=== PATIENT | female | born 2000 | race Caucasian/White ===

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

== ENCOUNTER 2020-02-24 09:27 | Emergency (ER) | payer MEDICAID, SELFPAY ==
[2020-02-24 09:46] VITALS: BP 134/89; PULSE 115; RESP 18; TEMP 37.1; O2SAT 97; BMI 30.7
--- NOTE | 2020-02-24 09:52 | USR_ITS ---
PROCEDURE INFORMATION: Exam: US Pelvis Complete, Transabdominal and US Pelvis, Transvaginal Exam date and time: 02/24/2020 10:29 AM Age: 19 years old Clinical indication: Other: Vaginal bleeding; Additional info: Vag bleed TECHNIQUE: Imaging protocol: Real-time transabdominal and transvaginal pelvic ultrasound (complete) with image documentation. Transvaginal imaging was used for better evaluation of the endometrium and adnexa. [place] [facility] [place] 08/26/2017 4:23 PM FINDINGS: Uterus/cervix: There is complex fluid at the cervix consistent with blood and the history of vaginal bleeding. The endometrium within the uterus is 7 mm in thickness. The uterus is otherwise normal in size shape and echogenicity. Right adnexa: Normal. No mass. Normal ovarian blood flow. Left adnexa: The left ovary could not be identified. Intraperitoneal space: None. Urinary bladder: Normal. US/US pelvic with transvaginal IMPRESSION: There is complex fluid in the cervix the probably represents blood. No other significant abnormality.
--- NOTE | 2020-02-24 09:56 | ED_ITS ---
HPI - Female Genitourinary General: Chief complaint: Vaginal Bleeding Stated complaint: VAG BLEEDING Time Seen by Provider: 02/24/20 09:47 History of Present Illness: HPI Narrative: Patient seen week and half ago by JOURNAL ENTRY AUDIT CLERK told she had a miscarriage was given a one-time dose of misoprostol. Bleeding slowed down and started to have a little bit of bleeding on seventh when she is seen by JOURNAL ENTRY AUDIT CLERK again and then started bleeding on eighth and ninth and 11th because she said she is going through a pad an hour. Denies any cramping feels weak denies any other problems. Patient states that she is a definite O+ blood type MD elicited complaint: vaginal bleeding and possible miscarriage Pertinent past history: prior miscarriages Onset (ago): day(s) Consistency: constant Vaginal discharge: none Vaginal bleeding: heavy, bright red and # pads per hour (1) Exacerbating factors: none Relieving factors: none Associated symptoms: Reports other (Weakness); Deny abdominal pain, headache(s) or nausea Treatment prior to arrival: none Sexual activity: No Patient : No (Was told that she had miscarried) Date of Last Menstrual Period: 02/24/20 Review of Systems Const: Denies: fever(s), chills or body aches Eyes: Denies: change in vision or blurry vision ENMT: Denies: throat pain or nasal congestion Card: Denies: chest pain or dyspnea on exertion Resp: Denies: dyspnea, productive cough or non-productive cough GI: Denies: abdominal pain, nausea or vomiting : Reports: vaginal bleeding Musc: Denies: extremity pain Skin/Breast: Denies: rash Neuro: Denies: headache(s) Psych: Denies: anxiety or depression Carl/Lymph: Denies: easy bruising [facility] ED Female Reproductive History: Date of last menstrual period: 02/24/20 Physical Exam Const: COMMON NORMALS: no acute distress, average body habitus and patient oriented x3 HENMT: COMMON NORMALS: normocephalic HEAD & SCALP: normal to inspection and normocephalic FACE & SINUS: normal facial exam Eye: COMMON NORMALS: conjunctivae normal GENERAL EYE: appearance normal, both eyes and all related structures CONJUNCTIVA: Yes conjunctivae normal Neck/C-Spine: COMMON NORMALS: no JVD Chest: COMMONS NORMALS: normal inspection of the chest Resp: COMMON NORMALS: normal respiratory effort Cardio: COMMON NORMALS: no JVD and regular rhythm RATE: tachycardic RHYTHM: regular rhythm GI: COMMON NORMALS: Normal to inspection, nondistended, normoactive bowel sounds present Extremity: COMMON NORMALS: normal to inspection and full ROM Neuro: COMMON NORMALS: patient oriented x3 Course Vital Signs: Vital signs: Vital Signs Temperature 98.7 F 02/24/20 09:46 Pulse Rate 103 H 02/24/20 11:13 Respiratory Rate 18 02/24/20 11:13 Blood Pressure 121/73 02/24/20 11:13 Pulse Oximetry 100 02/24/20 11:13 MDM - Female MDM Narrative: Medical decision making narrative: Discussed case with Dr. Islas discussed radiology results agreed on plan to treat patient patient follow-up with JOURNAL ENTRY AUDIT CLERK and [place] Lab Data: Labs: Lab Results 02/24/20 02/24/20 02/24/20 Range/Units 10:00 10:00 10:00 WBC 7.9 (4.5-13.0) 10^3/ uL RBC 3.98 L (4.1-5.3) 10^6/u L Hgb 11.8 (11.5-15.3) g/dL Hct 36.3 L (37.0-47.0) % MCV 91.2 (81-99) fL MCH 29.6 (28.0-34.0) pg MCHC 32.5 (30.0-36.0) g/dL RDW 13.0 (12.1-15.1) % Plt Count 215 (130-400) 10^3/c mm MPV 11.1 H (7.4-10.4) fL Neut % (Auto) 74.9 % Lymph % (Auto) 15.4 % [place] % (Auto) 8.6 % Eos % (Auto) 0.4 % Baso % (Auto) 0.3 % Neut # (Auto) 5.92 (1.8-8.0) 10^3/u L Lymph # (Auto) 1.2 L (1.5-6.5) 10^3/u L [place] # (Auto) 0.7 (0.2-0.9) 10^3/u L Eos # (Auto) 0.0 (0.0-0.8) 10^3/u L Baso # (Auto) 0.0 (0.0-0.1) 10^3/u L Nucleated RBC % (a uto) 0 % Nucleated RBCs # 0.0 /100WBC PT 13.30 (12.1-14.9) SECO NDS INR 0.99 (0.8-1.2) Sodium 137 (136-145) mmol/L Potassium 3.2 L (3.5-5.1) mmol/L Chloride 103 (98-107) mmol/L Carbon Dioxide 22 (22-29) mmol/L Anion Gap 15.2 (5-19) BUN 8 (6-20) mg/dL Creatinine 0.7 (0.5-0.9) mg/dL GFR Calculation 107.8 (90-130) mL/min Glucose 96 (65-115) mg/dL Calculated Osmolal ity 282 L (285-295) mOsm/k g Calcium 9.3 (8.5-10.5) mg/dL Total Bilirubin 0.3 (0.15-1.2) mg/dL AST 15 (0-32) U/L ALT 14 (0-33) U/L Alkaline Phosphata se 88 (35-105) IU/L Total Protein 7.2 (6.6-8.7) g/dL Albumin 3.9 (3.5-5.2) g/dL Globulin 3.3 (1.3-4.6) g/dL Ser , Jameel i-Qnt 897.20 mIU/mL Coding Level of Care Code ED Seal Mixer for Chg Fwd Exam Comprehensive
[2020-02-24 09:57] VITALS: BP 144/88; PULSE 115; RESP 18; O2SAT 100
[2020-02-24 10:23] LABS: Basophils % 0.3 %; Eosinophils % 0.4 %; Hematocrit 36.3 % (37.0-47.0); Hemoglobin 11.8 g/dL (11.5-15.3); Lymphocytes # 1.2 10^3/uL (1.5-6.5); Lymphocytes % 15.4 %; Mean Corpuscular HGB Conc 32.5 g/dL (30.0-36.0); Mean Corpuscular Hemoglobin 29.6 pg (28.0-34.0); Mean Corpuscular Volume 91.2 fL (81-99); Mean Platelet Volume 11.1 fL (7.4-10.4); Monocytes # 0.7 10^3/uL (0.2-0.9); Monocytes % 8.6 %; Neutrophils # 5.92 10^3/uL (1.8-8.0); Neutrophils % 74.9 %; Nucleated Red Blood Cells % 0 %; Platelet Count 215 10^3/cmm (130-400); Red Blood Count 3.98 10^6/uL (4.1-5.3); White Blood Count 7.9 10^3/uL (4.5-13.0)
[2020-02-24 10:35] LABS: INR 0.99 (0.8-1.2)
[2020-02-24 10:51] LABS: Alanine Aminotransferase 14 U/L (0-33); Albumin Level 3.9 g/dL (3.5-5.2); Alkaline Phosphatase 88 IU/L (35-105); Anion Gap 15.2 (5-19); Aspartate Amino Transferase 15 U/L (0-32); Blood Urea Nitrogen 8 mg/dL (6-20); Calcium 9.3 mg/dL (8.5-10.5); Carbon Dioxide 22 mmol/L (22-29); Chloride 103 mmol/L (98-107); Creatinine Clr Calc Pharmacy 138.2884; Globulin 3.3 g/dL (1.3-4.6); Glomerular Filtration Rate 107.8 mL/min (90-130); Glucose 96 mg/dL (65-115); Osmolality Calculated 282 mOsm/kg (285-295); Potassium 3.2 mmol/L (3.5-5.1); Sodium 137 mmol/L (136-145); Total Bilirubin 0.3 mg/dL (0.15-1.2); Total Protein 7.2 g/dL (6.6-8.7)
[2020-02-24 11:13] VITALS: BP 121/73; PULSE 103; RESP 18; O2SAT 100
[2020-02-24] MEDS: potassium chloride ER 10 mEq Tablet 40 MEQ PO (11:28)
[2020-02-24 11:36] LABS: Bilirubin Urine 1+ (Negative); Blood Urine 3+ (Negative); Glucose Urine UA Norm (Normal); Ketones Urine 2+ (Negative); Nitrate Urine Negative (Negative); Protein Urine 1+ (Negative); Specific Gravity, Urine 1.025 (1.005-1.030); Urine Appearance Hazy (CLEAR); Urine Color Amber (Yellow); Urobilinogen Urine 1 mg/dL (Negative); pH Urine 5 (5-7)
[2020-02-24 11:37] LABS: Add Urine Microscopic? YES; Leukocyte Esterase Urine Trace (Negative)
[2020-02-24 11:39] LABS: RBC Urine TOO NUMEROUS TO CNT /hpf (0-2)
[2020-02-24 11:40] VITALS: BP 116/85; PULSE 101; RESP 18; O2SAT 96
[2020-02-24 11:40] LABS: Bacteria Urine 2+ /hpf; Mucus Urine 2+ /hpf
[2020-02-24 11:42] LABS: Add Urine Culture? Yes
== END 2020-02-24 11:41 | disposition home or self-care (01) ==
PROVIDERS: Emergency Provider Nurse Practitioner Family; Family Provider Family Medicine; PCP Family Medicine
DX: N93.9 Abnormal uterine and vaginal bleeding, unspecified (principal)
CPT/HCPCS: 12345; 76830; 76856; 80053; 81001; 84702; 85025; 85610; 87086; 99283

== ENCOUNTER 2020-08-02 08:34 | Emergency (ER) | payer MEDICAID, SELFPAY ==
[2020-08-02] VITALS (7 sets, daily range): BP systolic 122–133; BP diastolic 71–84; PULSE 78–83; RESP 15–18; TEMP 36.3; O2SAT 98–99; BMI 29.9
--- NOTE | 2020-08-02 09:02 | ED_ITS ---
HPI - Female Genitourinary General: Chief complaint: Vaginal Bleeding Stated complaint: 6 weeks preg/ Vaginal Bleeding Time Seen by Provider: 08/02/20 08:43 Source: patient Mode of arrival: ambulatory Limitations: no limitations History of Present Illness: HPI Narrative: 19-year-old female, G4,P1 at approximately 6 weeks gestation by LMP started having lower abdominal cramping and vaginal bleeding this morning. Has passed a few small clots, bleeding is light. She has had 2 previous first trimester miscarriages. She has not yet had an ultrasound during this . No fever, no nausea or vomiting, no abnormal vaginal discharge prior. No dysuria. Associated symptoms: Deny abdominal pain, headache(s), nausea or vaginal discharge Date of Last Menstrual Period: 02/24/20 Review of Systems General: Reports: 10 or more systems reviewed and unremarkable except in HPI and below Const: Denies: fever(s), chills, body aches, change in appetite or change in weight Eyes: Denies: change in vision, blurry vision or blind spots ENMT: Denies: throat pain Card: Denies: chest pain, palpitations or irregular heart rhythm Resp: Denies: dyspnea, productive cough or non-productive cough GI: Reports: GI cramping; Denies: abdominal pain, nausea, vomiting or diarrhea : Reports: vaginal bleeding; Denies: flank pain, difficulty voiding, dysuria, urinary frequency, vaginal odor or vaginal discharge Musc: Denies: neck pain, back pain or extremity pain Skin/Breast: Denies: rash or pruritus Neuro: Denies: headache(s), numbness in extremities or weakness in extremities Endo: Denies: polyuria, polydipsia or tired all the time Carl/Lymph: Denies: easy bruising, easy bleeding or petechiae [facility] Female Reproductive History: Date of last menstrual period: 02/24/20 Physical Exam Const: COMMON NORMALS: no acute distress, average body habitus, patient oriented x3, healthy appearing and alert GENERAL APPEARANCE: cooperative, comfortable and anxious; not in distress, not ill appearing and not frail appearing HENMT: COMMON NORMALS: normocephalic and atraumatic HEAD & SCALP: normocephalic and atraumatic FACE & SINUS: normal facial exam Eye: COMMON NORMALS: Equal, round and reactive pupils present, EOMs intact bilaterally, conjunctivae normal and no scleral icterus GENERAL EYE: appearance normal, both eyes and all related structures CONJUNCTIVA: Yes conjunctivae normal PUPIL: Yes Equal, round and reactive pupils present Neck/C-Spine: COMMON NORMALS: full ROM Lymph: LYMPHATIC: no lymphadenopathy noted Resp: COMMON NORMALS: normal respiratory effort, No use of accessory muscles and clear to auscultation bilaterally EFFORT & INSPECTION: Yes able to speak in complete sentences, No tachypneic, No respiratory distress and No Actively coughing AUSCULTATION: clear to auscultation bilaterally Cardio: COMMON NORMALS: regular rate, regular rhythm, S1 normal heart sound present and S2 normal heart sound present RATE: regular rate RHYTHM: regular rhythm HEART SOUNDS: S1 normal heart sound present and S2 normal heart sound present GI: COMMON NORMALS: Normal to inspection, nondistended, normoactive bowel sounds present, Soft to palpation and non-tender PALPATION: Yes Soft to palpation : COMMON NORMALS: Yes normal external appearance SPECULUM EXAM - VAGINA: No foreign body, Yes vaginal bleeding Amount: scant and with clots, No mass, No Vaginal polyp present and No Vaginal discharge present SPECULUM EXAM - CERVIX: Yes Cervical os closed, No Cervical lesion present, No Cervical mass present and No Cervical laceration present BIMANUAL EXAM - ADNEXA, OTHER: Yes normal adnexae OB/EXTERNAL & SPECULUM: no foreign bodies Neuro: COMMON NORMALS: patient oriented x3 SENSORIUM/ORIENTATION: Yes alert Skin: COMMON NORMALS: no rashes or lesions noted, no wounds and turgor normal GENERAL SKIN EXAM: no rashes or lesions noted and turgor normal Course Vital Signs: Vital signs: Vital Signs Temperature 97.3 F L 08/02/20 08:38 Pulse Rate 78 08/02/20 10:05 Respiratory Rate 18 08/02/20 12:01 Blood Pressure 124/72 08/02/20 10:05 Pulse Oximetry 99 08/02/20 11:00 MDM - Female MDM Narrative: Medical decision making narrative: 19-year-old female with vaginal bleeding, proximately 6 weeks . Scant blood in the vaginal vault on exam. Vital signs and routine labs all unremarkable. UA does not suggest acute infection. [place] [id number], Rh + Ultrasound shows single viable IUP at approximately 6 weeks. No mention of subchorionic hemorrhage or other abnormalities. heart rate was 100, which is lower than would be expected. Discussed these findings with the patient. Watchful waiting over the next 24 to 48 hours, and prompt follow-up with her SUPERVISOR MOLDING. Bleeding precautions discussed. Pelvic rest. Medical Records: Attestation: I reviewed the patient's medical records. Lab Data: Attestation: I reviewed the patient's lab results. Labs: Lab Results 08/02/20 08/02/20 08/02/20 Range/Units 08:45 08:45 08:45 WBC 10.4 (4.5-13.0) 10^3/ uL RBC 4.73 (4.1-5.3) 10^6/u L Hgb 12.5 (11.5-15.3) g/dL Hct 40.1 (37.0-47.0) % MCV 84.8 (81-99) fL MCH 26.4 L (28.0-34.0) pg MCHC 31.2 (30.0-36.0) g/dL RDW 16.9 H (12.1-15.1) % Plt Count 287 (130-400) 10^3/c mm MPV 11.1 H (7.4-10.4) fL Neut % (Auto) 69.5 % Lymph % (Auto) 21.9 % [place] % (Auto) 6.9 % Eos % (Auto) 1.1 % Baso % (Auto) 0.4 % Neut # (Auto) 7.25 (1.8-8.0) 10^3/u L Lymph # (Auto) 2.3 (1.5-6.5) 10^3/u L [place] # (Auto) 0.7 (0.2-0.9) 10^3/u L Eos # (Auto) 0.1 (0.0-0.8) 10^3/u L Baso # (Auto) 0.0 (0.0-0.1) 10^3/u L Nucleated RBC % (a uto) 0 % Nucleated RBCs # 0.0 /100WBC Sodium 134 L (136-145) mmol/L Potassium 3.6 (3.5-5.1) mmol/L Chloride 101 (98-107) mmol/L Carbon Dioxide 23 (22-29) mmol/L Anion Gap 13.6 (5-19) BUN 8 (6-20) mg/dL Creatinine 0.5 (0.5-0.9) mg/dL GFR Calculation 158.9 H (90-130) mL/min Glucose 87 (65-115) mg/dL Calculated Osmolal ity 276 L (285-295) mOsm/k g Calcium 8.9 (8.5-10.5) mg/dL Ser , Jameel [place]-Qnt 42327.00 mIU/mL Urine Color (Yellow) Urine Appearance (CLEAR) Urine pH (5-7) Ur Specific Gravit y (1.005-1.030) Urine Protein (Negative) Urine Glucose (UA) (Normal) Urine Ketones (Negative) Urine Blood (Negative) Urine Nitrate (Negative) Urine Bilirubin (Negative) Urine Urobilinogen (Negative) mg/dL Ur Leukocyte Ashley ase (Negative) Urine RBC (0-2) /hpf Urine WBC (0-5) /hpf Ur Squamous Epith Cells (0-5) /hpf Amorphous Sediment Urine Bacteria (NONE) /hpf Blood Type O Positive Rho(D) Type Positive / 4+ 03/ Range/Units 08:45 WBC (4.5-13.0) 10^3/ uL RBC (4.1-5.3) 10^6/u L Hgb (11.5-15.3) g/dL Hct (37.0-47.0) % MCV (81-99) fL MCH (28.0-34.0) pg MCHC (30.0-36.0) g/dL RDW (12.1-15.1) % Plt Count (130-400) 10^3/c mm MPV (7.4-10.4) fL Neut % (Auto) % Lymph % (Auto) % [place] % (Auto) % Eos % (Auto) % Baso % (Auto) % Neut # (Auto) (1.8-8.0) 10^3/u L Lymph # (Auto) (1.5-6.5) 10^3/u L [place] # (Auto) (0.2-0.9) 10^3/u L Eos # (Auto) (0.0-0.8) 10^3/u L Baso # (Auto) (0.0-0.1) 10^3/u L Nucleated RBC % (a uto) % Nucleated RBCs # /100WBC Sodium (136-145) mmol/L Potassium (3.5-5.1) mmol/L Chloride (98-107) mmol/L Carbon Dioxide (22-29) mmol/L Anion Gap (5-19) BUN (6-20) mg/dL Creatinine (0.5-0.9) mg/dL GFR Calculation (90-130) mL/min Glucose (65-115) mg/dL Calculated Osmolal ity (285-295) mOsm/k g Calcium (8.5-10.5) mg/dL Ser , Jameel i-Qnt mIU/mL Urine Color Yellow (Yellow) Urine Appearance Sl hazy (CLEAR) Urine pH 6 (5-7) Ur Specific Gravit y 1.015 (1.005-1.030) Urine Protein Neg (Negative) Urine Glucose (UA) Norm (Normal) Urine Ketones Negative (Negative) Urine Blood 3+ H (Negative) Urine Nitrate Negative (Negative) Urine Bilirubin Neg (Negative) Urine Urobilinogen Norm (Negative) mg/dL Ur Leukocyte Ashley ase Negative (Negative) Urine RBC 50-80 H (0-2) /hpf Urine WBC 0-4 H (0-5) /hpf Ur Squamous Epith Cells 5-10 H (0-5) /hpf Amorphous Sediment Not Reportable Urine Bacteria Trace (NONE) /hpf Blood Type Rho(D) Type Discharge Plan Discharge Patient Disposition: Home Clinical Impression: Threatened , Vaginal bleeding Condition: Stable Prescriptions: No Action 1 tab PO DAILY RF: 0 Discharge Orders: Discharge ED (Routine); Ordered 08/02/20 Ordered By: Dionne Gilbert Referrals: Jamie Sarabia MD [Primary Care Provider] - Discharge Diet: Advance as tolerated Patient Instructions: Threatened Miscarriage (ED) Activity Restrictions/Additional Instructions: Call to schedule follow-up appointment with your SUPERVISOR MOLDING in the next 3 to 5 days. Rest, drink plenty of fluids, avoid intercourse until you see your SUPERVISOR MOLDING. Return immediately to the ER if develop fever, severe abdominal pain or heavy vaginal bleeding. Coding Level of Care Code ED Compliance Review Officer for Ace Richey Exam Problem Focused
[2020-08-02 09:30] LABS: Basophils % 0.4 %; Eosinophils # 0.1 10^3/uL (0.0-0.8); Eosinophils % 1.1 %; Hematocrit 40.1 % (37.0-47.0); Hemoglobin 12.5 g/dL (11.5-15.3); Lymphocytes # 2.3 10^3/uL (1.5-6.5); Lymphocytes % 21.9 %; Mean Corpuscular HGB Conc 31.2 g/dL (30.0-36.0); Mean Corpuscular Hemoglobin 26.4 pg (28.0-34.0); Mean Corpuscular Volume 84.8 fL (81-99); Mean Platelet Volume 11.1 fL (7.4-10.4); Monocytes # 0.7 10^3/uL (0.2-0.9); Monocytes % 6.9 %; Neutrophils # 7.25 10^3/uL (1.8-8.0); Neutrophils % 69.5 %; Nucleated Red Blood Cells % 0 %; Platelet Count 287 10^3/cmm (130-400); Red Blood Count 4.73 10^6/uL (4.1-5.3); Red Cell Distribution Width 16.9 % (12.1-15.1); White Blood Count 10.4 10^3/uL (4.5-13.0)
[2020-08-02 10:00] LABS: Add Urine Microscopic? YES; Bilirubin Urine Neg (Negative); Blood Urine 3+ (Negative); Glucose Urine UA Norm (Normal); Ketones Urine Negative (Negative); Leukocyte Esterase Urine Negative (Negative); Nitrate Urine Negative (Negative); Protein Urine Neg (Negative); Specific Gravity, Urine 1.015 (1.005-1.030); Urine Appearance SL Hazy (CLEAR); Urine Color Yellow (Yellow); Urobilinogen Urine Norm (Negative); pH Urine 6 (5-7)
[2020-08-02 10:01] LABS: Bacteria Urine TRACE /hpf; RBC Urine 50-80 /hpf (0-2); WBC Urine 0-4 /hpf (0-5)
[2020-08-02 10:02] LABS: Add Urine Culture? Yes
[2020-08-02 10:04] LABS: Anion Gap 13.6 (5-19); Blood Urea Nitrogen 8 mg/dL (6-20); Calcium 8.9 mg/dL (8.5-10.5); Carbon Dioxide 23 mmol/L (22-29); Chloride 101 mmol/L (98-107); Glomerular Filtration Rate 158.9 mL/min (90-130); Glucose 87 mg/dL (65-115); Osmolality Calculated 276 mOsm/kg (285-295); Potassium 3.6 mmol/L (3.5-5.1); Sodium 134 mmol/L (136-145)
--- NOTE | 2020-08-02 10:25 | USR_ITS ---
PROCEDURE INFORMATION: Exam: US First Trimester, Transabdominal and US , Transvaginal Exam date and time: 08/02/2020 10:33 AM Age: 19 years old Clinical indication: Lmp or gestational age (in weeks): (not clear); Other: Vaginal bleeding, pain; ; Patient HX: H/o d&c ; Additional info: Vag bleeding, pain TECHNIQUE: Imaging protocol: Real-time transabdominal obstetrical ultrasound of the maternal pelvis and a first trimester , less than 14 weeks 0 days, with image documentation. Transvaginal imaging was used for better evaluation of the fetus, adnexa, and/or cervix. COMPARISON: No relevant available FINDINGS: Gestation: Gestational sac located at the fundus with mean sac diameter 9.6 mm (6 weeks 0 days). Ester-rump length 3.9 mm (6 weeks 0 day). Yolk sac measures 3 mm. No evidence of hemorrhage at the implantation site. Embryonic/ heart rate: heart rate 100 bpm. Placenta: Not visualized at this early stage. Amniotic fluid: Amniotic fluid is normal for gestational age. BIOMETRY: Gestational age (AUA): 6 weeks 0 days (+/-3 days) MATERNAL: Uterus: Uterus measures 6.8 x 3.6 x 6.8 cm. Cervix: Unremarkable. Right adnexa: Right ovary measures 3.4 x 3.3 x 3.1 cm and contains a 3.2 x 2.5 x 2.5 cm hypoechoic cyst. Normal blood flow identified within the ovary. Left adnexa: Left ovary not identified. No adnexal mass. Intraperitoneal space: No intraperitoneal free fluid seen. US/US OB <=14 wk fetus w transvag IMPRESSION: 1. Single live IUP with EGA 6 weeks 0 days. No abnormality seen at this early stage. 2. Incidental 3.2 cm right ovarian cyst.
== END 2020-08-02 12:02 | disposition home or self-care (01) ==
PROVIDERS: Emergency Provider Family Medicine; PCP Family Medicine
DX: O20.0 Threatened abortion (principal); Z3A.01 Less than 8 weeks gestation of pregnancy
CPT/HCPCS: 76801; 76817; 80048; 81001; 84702; 85025; 86900; 87086; 99284

== ENCOUNTER 2020-08-09 09:08 | Emergency (ER) | payer MEDICAID, SELFPAY ==
[2020-08-09 09:13] VITALS: BP 98/79; PULSE 95; RESP 18; TEMP 36.3; O2SAT 98; BMI 31.3
[2020-08-09 09:19] VITALS: BP 124/78; PULSE 89; RESP 18; O2SAT 100
--- NOTE | 2020-08-09 09:22 | W.ED.PREGNAN ---
HPI - General: Chief complaint: Vaginal Bleeding Stated complaint: 7 WKS PREG, AB PAIN, POSS INFECTION Time Seen by Provider: 08/09/20 09:13 History of Present Illness: HPI Narrative: Patient is a 20-year-old female G4, P1 that is approximately 7 weeks comes to the ED with spotting and lower abdominal cramping. Patient was seen here on August 02 for same complaint. An ultrasound was performed in the ED and it showed a single viable IUP with no subchorionic hemorrhage seen. heart rate was 100 which is lower than expected. Patient was discharged home and told to return if symptoms worsen. Patient said that her spotting has been consistent but has not increased for the past week. Her lower abdominal cramping has gotten more painful and consistent over the past week and she also states that she has a foul odor coming from her vagina within the last 2 days. Denies any fever, dysuria, hematuria, vaginal discharge, nausea/vomiting. Date of Last Menstrual Period: 06/17/20 Associated symptoms: Deny abdominal pain, dysuria, headache(s), nausea or vomiting Review of Systems Const: Denies: fever(s), chills or fatigue Eyes: Denies: change in vision or eye discomfort ENMT: Denies: throat pain, odynophagia, nasal discharge or nasal congestion Card: Denies: chest pain, palpitations, edema, swelling of feet/ankles, dyspnea on exertion or orthopnea Resp: Denies: dyspnea, productive cough or non-productive cough GI: Denies: abdominal pain, nausea, vomiting, diarrhea, constipation or hematochezia : Reports: vaginal bleeding (spotting) and pelvic pain (cramping); Denies: flank pain, dysuria or hematuria Musc: Denies: neck pain, back pain or extremity swelling Skin/Breast: Denies: rash or new lesions Neuro: Denies: headache(s), numbness in extremities or weakness in extremities [facility] ED Female Reproductive History: Date of last menstrual period: 06/17/20 Physical Exam Const: COMMON NORMALS: no acute distress, patient oriented x3, healthy appearing and alert GENERAL APPEARANCE: cooperative and comfortable HENMT: COMMON NORMALS: normocephalic HEAD & SCALP: normocephalic MOUTH: Normal oral and palatal mucosa present THROAT: posterior oropharynx normal and uvula midline Neck/C-Spine: COMMON NORMALS: supple GENERAL: Yes normal visual inspection Resp: COMMON NORMALS: normal respiratory effort, No retractions, No use of accessory muscles and clear to auscultation bilaterally AUSCULTATION: clear to auscultation bilaterally Cardio: COMMON NORMALS: regular rate, regular rhythm, S1 normal heart sound present, S2 normal heart sound present, No gallops present (Cardio), No clicks present (Cardio), No murmurs present (Cardio) and Peripheral pulses 2+ throughout RATE: regular rate RHYTHM: regular rhythm HEART SOUNDS: S1 normal heart sound present and S2 normal heart sound present PERIPHERAL PULSES: Peripheral pulses 2+ throughout GI: COMMON NORMALS: Normal to inspection, nondistended, normoactive bowel sounds present, Soft to palpation, non-tender and no masses PALPATION: Yes Soft to palpation : COMMON NORMALS: Yes no CVA tenderness BLADDER/KIDNEY EXAM: Yes no CVA tenderness Back/Pelvis: COMMON NORMALS: no CVA tenderness Extremity: COMMON NORMALS: normal to inspection Neuro: COMMON NORMALS: patient oriented x3 and moves all extremities SENSORIUM/ORIENTATION: Yes alert Skin: GENERAL SKIN EXAM: dry skin Course Vital Signs: Vital signs: Vital Signs Temperature 97.3 F L 08/09/20 09:13 Pulse Rate 85 08/09/20 09:33 Respiratory Rate 18 08/09/20 09:33 Blood Pressure 124/78 08/09/20 09:33 Pulse Oximetry 100 08/09/20 09:33 MDM - OB/Uterine Contractions MDM Narrative: Medical decision making narrative: Patient is a 7 weeks 20-year-old female comes to the ED with vaginal spotting and lower abdominal cramping. Patient was seen here in the ED for same complaint on August 02. Patient is Rh+ and ultrasound on the showed an IUP with no other significant findings. Patient comes to the ED today because she is having increased lower abdominal cramping but states her spotting has remained unchanged. Patient appears healthy and in no acute distress and denies any fever, nausea/vomiting. CBC, CMP and UA were unremarkable. hCG quant was 40,966 which is significantly elevated compared to patient's hCG quant on August 02 of 11,827. Ultrasound showed normal single intrauterine with a gestational age of 6 weeks and 5 days--heart rate 122 bpm. Patient was discharged home and diagnosed with spotting during in first trimester. Return to ED precautions given. Patient was told to follow-up with OB at next appointment. Patient understood agree with plan. Medical Records: Attestation: I reviewed the patient's medical records. Medical records narrative: After looking over her medical notes from last ED visit on August 02 patient, patient was Rh+ and had a serum quant of 11,827. Ultrasound was also performed that day and it showed a single IUP with a heart rate of 100. Lab Data: Labs: Lab Results 08/09/20 08/09/20 08/09/20 Range/Units 09:31 09:43 09:43 WBC 13.7 H (4.5-13.0) 10^3/ uL RBC 4.68 (4.1-5.3) 10^6/u L Hgb 12.8 (11.5-15.3) g/dL Hct 40.0 (37.0-47.0) % MCV 85.5 (81-99) fL MCH 27.4 L (28.0-34.0) pg MCHC 32.0 (30.0-36.0) g/dL RDW 16.6 H (12.1-15.1) % Plt Count 291 (130-400) 10^3/c mm MPV 10.7 H (7.4-10.4) fL Neut % (Auto) 78.3 % Lymph % (Auto) 13.5 % [place] % (Auto) 6.8 % Eos % (Auto) 0.9 % Baso % (Auto) 0.2 % Neut # (Auto) 10.71 H (1.8-8.0) 10^3/u L Lymph # (Auto) 1.9 (1.5-6.5) 10^3/u L [place] # (Auto) 0.9 (0.2-0.9) 10^3/u L Eos # (Auto) 0.1 (0.0-0.8) 10^3/u L Baso # (Auto) 0.0 (0.0-0.1) 10^3/u L Nucleated RBC % (a uto) 0 % Nucleated RBCs # 0.0 /100WBC Sodium 137 (136-145) mmol/L Potassium 3.9 (3.5-5.1) mmol/L Chloride 104 (98-107) mmol/L Carbon Dioxide 23 (22-29) mmol/L Anion Gap 13.9 (5-19) BUN 6 (6-20) mg/dL Creatinine 0.5 (0.5-0.9) mg/dL GFR Calculation 157.3 H (90-130) mL/min Glucose 87 (65-115) mg/dL Calculated Osmolal ity 281 L (285-295) mOsm/k g Calcium 8.7 (8.5-10.5) mg/dL Total Bilirubin 0.4 (0.15-1.2) mg/dL AST 12 (0-32) U/L ALT 17 (0-33) U/L Alkaline Phosphata se 73 (35-105) IU/L Total Protein 7.1 (6.6-8.7) g/dL Albumin 4.1 (3.5-5.2) g/dL Globulin 3.0 (1.3-4.6) g/dL Ser , [place]Qnt 08428.00 mIU/mL Urine Color Straw (Yellow) Urine Appearance Clear (CLEAR) Urine pH 8 H (5-7) Ur Specific Gravit y 1.015 (1.005-1.030) Urine Protein Neg (Negative) Urine Glucose (UA) Norm (Normal) Urine Ketones Negative (Negative) Urine Blood Neg (Negative) Urine Nitrate Negative (Negative) Urine Bilirubin Neg (Negative) Prot Sulfosalicyli c Acd Negative (Negative) Urine Urobilinogen Norm (Negative) mg/dL Ur Leukocyte Ashley ase Negative (Negative) Urine RBC None (0-2) /hpf Urine WBC None (0-5) /hpf Ur Squamous Epith Cells 5-10 H (0-5) /hpf Amorphous Sediment Not Reportable Urine Bacteria Trace (NONE) /hpf Imaging Data^: US OB: Attestation: I personally reviewed and interpreted this imaging study as follows: Radiologist's impression: [address] [id number] Ultrasound Report Signed Patient: Alicia Lyons Unit #: [id number] : 2000 Age/Sex: 20 / F ADM Date: 08/09/20 Loc: ER Room/Bed: Attending Dr: Ordering Provider/Ordering MD: Rey Gan Date of Service: 08/09/20 Procedure(s): US OB lmt with transvaginal Accession Number(s): [id number] Report Number: [id number] PROCEDURE INFORMATION: Exam: US , Limited and US , Transvaginal Exam date and time: 08/09/2020 10:35 AM Age: 20 years old Clinical indication: Lmp or gestational age (in weeks): 7 weeks 0 days (by prior us); Other: Spotting and cramping; ; Patient HX: H/o d c; Additional info: 7 weeks preg with spotting and cramping TECHNIQUE: Imaging protocol: Real-time ultrasound of the maternal uterus with image documentation. Transvaginal imaging was used for better evaluation of the fetus, adnexa, and/or cervix. Exam focused on the clinical indication. COMPARISON: US OB <=14 wk fetus w transvag 08/02/2020 10:40 AM FINDINGS: Gestation: Single viable intrauterine gestation. Gestational sac diameter equals 2.07 cm. heart rate: heart rate equals 122 BPM. Placenta: There is a tiny subchorionic hematoma. BIOMETRY: Gestational age (AUA): Gestational age is 6 weeks 5 days. Estimated due date (AUA): EDC is 03/30/2021. [place]-Rump length: [place]-rump length equals 0.80 cm. MATERNAL: Right adnexa: There is a 2.4 cm corpus luteum cyst in the right ovary. US/US OB lmt with transvaginal IMPRESSION: Normal single intrauterine with a gestational age of 6 weeks 5 days and EDC of 03/30/2021. Dictated By: Christiano Simms Signed By: Christiano Simms Signed Date/Time: 08/09/20 1204 DD/ 1203 Discharge Plan Discharge Patient Disposition: Home Clinical Impression: Spotting during in first trimester Condition: Stable Prescriptions: No Action 1 tab PO DAILY RF: 0 Discharge Orders: Discharge ED (Routine); Ordered 08/09/20 Ordered By: Rey Gan Referrals: Jamie Sarabia MD [Primary Care Provider] - Discharge Diet: Regular Discharge Activity: Increase activity as tolerated Activity Restrictions/Additional Instructions: Follow-up with medical provider at your next scheduled OB appointment. Take Tylenol for any pain. Return to the ER or your medical provider if condition worsens. Please read and understand discharge instructions. If any questions, please ask. Coding Level of Care Code ED Rn Correctional for Ace Fwd Exam Comprehensive
[2020-08-09 09:33] VITALS: BP 124/78; PULSE 85; RESP 18; O2SAT 100
--- NOTE | 2020-08-09 09:48 | PC.NURSE ---
Had a BM prior to assessment
--- NOTE | 2020-08-09 09:52 | USR_ITS ---
PROCEDURE INFORMATION: Exam: US , Limited and US , Transvaginal Exam date and time: 08/09/2020 10:35 AM Age: 20 years old Clinical indication: Lmp or gestational age (in weeks): 7 weeks 0 days (by prior us); Other: Spotting and cramping; ; Patient HX: H/o d&c; Additional info: 7 weeks preg with spotting and cramping TECHNIQUE: Imaging protocol: Real-time ultrasound of the maternal uterus with image documentation. Transvaginal imaging was used for better evaluation of the fetus, adnexa, and/or cervix. Exam focused on the clinical indication. COMPARISON: US OB <=14 wk fetus w transvag 08/02/2020 10:40 AM FINDINGS: Gestation: Single viable intrauterine gestation. Gestational sac diameter equals 2.07 cm. heart rate: heart rate equals 122 BPM. Placenta: There is a tiny subchorionic hematoma. BIOMETRY: Gestational age (AUA): Gestational age is 6 weeks 5 days. Estimated due date (AUA): EDC is 03/30/2021. [place]-Rump length: [place]-rump length equals 0.80 cm. MATERNAL: Right adnexa: There is a 2.4 cm corpus luteum cyst in the right ovary. US/US OB lmt with transvaginal IMPRESSION: Normal single intrauterine with a gestational age of 6 weeks 5 days and EDC of 03/30/2021.
[2020-08-09 09:53] LABS: Basophils % 0.2 %; Eosinophils # 0.1 10^3/uL (0.0-0.8); Eosinophils % 0.9 %; Hemoglobin 12.8 g/dL (11.5-15.3); Lymphocytes # 1.9 10^3/uL (1.5-6.5); Lymphocytes % 13.5 %; Mean Corpuscular Hemoglobin 27.4 pg (28.0-34.0); Mean Corpuscular Volume 85.5 fL (81-99); Mean Platelet Volume 10.7 fL (7.4-10.4); Monocytes # 0.9 10^3/uL (0.2-0.9); Monocytes % 6.8 %; Neutrophils # 10.71 10^3/uL (1.8-8.0); Neutrophils % 78.3 %; Nucleated Red Blood Cells % 0 %; Platelet Count 291 10^3/cmm (130-400); Red Blood Count 4.68 10^6/uL (4.1-5.3); Red Cell Distribution Width 16.6 % (12.1-15.1); White Blood Count 13.7 10^3/uL (4.5-13.0)
[2020-08-09 10:00] LABS: Add Urine Culture? No; Bacteria Urine TRACE /hpf; Bilirubin Urine Neg (Negative); Blood Urine Neg (Negative); Glucose Urine UA Norm (Normal); Ketones Urine Negative (Negative); Leukocyte Esterase Urine Negative (Negative); Nitrate Urine Negative (Negative); Protein Urine Neg (Negative); Specific Gravity, Urine 1.015 (1.005-1.030); Sulfosalicylic Acid Urine Negative (Negative); Urine Appearance Clear (CLEAR); Urine Color Straw (Yellow); Urobilinogen Urine Norm (Negative); pH Urine 8 (5-7)
[2020-08-09 10:30] LABS: Alanine Aminotransferase 17 U/L (0-33); Albumin Level 4.1 g/dL (3.5-5.2); Alkaline Phosphatase 73 IU/L (35-105); Anion Gap 13.9 (5-19); Aspartate Amino Transferase 12 U/L (0-32); Blood Urea Nitrogen 6 mg/dL (6-20); Calcium 8.7 mg/dL (8.5-10.5); Carbon Dioxide 23 mmol/L (22-29); Chloride 104 mmol/L (98-107); Glomerular Filtration Rate 157.3 mL/min (90-130); Glucose 87 mg/dL (65-115); Osmolality Calculated 281 mOsm/kg (285-295); Potassium 3.9 mmol/L (3.5-5.1); Sodium 137 mmol/L (136-145); Total Bilirubin 0.4 mg/dL (0.15-1.2); Total Protein 7.1 g/dL (6.6-8.7)
== END 2020-08-09 12:04 | disposition home or self-care (01) ==
PROVIDERS: Emergency Provider Physician Assistant; PCP Family Medicine
DX: O46.8X1 Other antepartum hemorrhage, first trimester (principal); Z3A.01 Less than 8 weeks gestation of pregnancy
CPT/HCPCS: 76815; 76817; 80053; 81001; 84702; 85025; 99283

== ENCOUNTER 2021-03-22 17:20 | Outpatient (CLI) | payer MEDICAID, SELFPAY ==
[2021-03-22 17:20] VITALS: BMI 38.7
[2021-03-22 17:30] VITALS: RESP 16
[2021-03-22 17:41] VITALS: BP 138/86; PULSE 77; TEMP 36.4
[2021-03-22 18:15] VITALS: BP 135/76; PULSE 77
[2021-03-22 18:45] VITALS: BP 137/82; PULSE 75
== END 2021-03-22 19:03 | disposition home or self-care (01) ==
LOC: OPOB 17:25 → OBGYN 17:26
PROVIDERS: PCP Family Medicine; Visit Provider Family Medicine
DX: O99.891 Other specified diseases and conditions complicating pregnancy (principal); R10.2 Pelvic and perineal pain
CPT/HCPCS: 59025; 99211

== ENCOUNTER 2021-03-29 20:23 | Inpatient (IN) | payer MEDICAID, SELFPAY ==
[2021-03-29] VITALS (14 sets, daily range): BP systolic 133–168; BP diastolic 63–96; PULSE 82–101; RESP 16; TEMP 36.3; BMI 38.9
[2021-03-29 21:41] LABS: Basophils % 0.2 %; Eosinophils # 0.1 10^3/uL (0.0-0.8); Eosinophils % 0.5 %; Hematocrit 30.9 % (37.0-47.0); Hemoglobin 9.4 g/dL (11.5-15.3); Lymphocytes % 19.9 %; Mean Corpuscular HGB Conc 30.4 g/dL (30.0-36.0); Mean Corpuscular Hemoglobin 24.7 pg (28.0-34.0); Mean Corpuscular Volume 81.1 fl (81-99); Mean Platelet Volume 12.1 fL (7.4-10.4); Monocytes # 0.8 10^3/uL (0.2-0.9); Monocytes % 8.1 %; Neutrophils # 7.13 10^3/uL (1.8-8.0); Neutrophils % 70.8 %; Nucleated Red Blood Cells % 0 %; Platelet Count 286 10^3/cmm (130-400); Red Blood Count 3.81 10^6/uL (4.1-5.3); Red Cell Distribution Width 17.1 % (12.1-15.1); White Blood Count 10.1 10^3/uL (4.5-13.0)
[2021-03-29] MEDS: dextrose 5%-lactated ringers 1,000 ML 125 ML IV (22:00)
[2021-03-29] MEDS: oxytocin 30 UNIT/500 ML BAG IV (22:11)
[2021-03-29 22:15] LABS: Amphetamines Screen Urine Negative (Negative); Barbiturates Screen Urine Negative (Negative); Benzodiazepines Screen Urine Negative (Negative); Cocaine Screen Urine Negative (Negative); Opiate Screen Urine Negative (Negative); PCP Screen Urine Negative (Negative); THC Screen Urine Negative (Negative)
[2021-03-29 22:50] LABS: Alanine Aminotransferase 15 U/L (0-33); Albumin Level 3.2 g/dL (3.5-5.2); Alkaline Phosphatase 161 IU/L (35-105); Anion Gap 14.8 (5-19); Aspartate Amino Transferase 21 U/L (0-32); Blood Urea Nitrogen 7 mg/dL (6-20); Calcium 9.3 mg/dL (8.5-10.5); Carbon Dioxide 23 mmol/L (22-29); Chloride 103 mmol/L (98-107); Glomerular Filtration Rate 127.5 mL/min (90-130); Glucose 80 mg/dL (65-115); Osmolality Calculated 281 mOsm/kg (285-295); Potassium 3.8 mmol/L (3.5-5.1); Sodium 137 mmol/L (136-145); Total Bilirubin 0.2 mg/dL (0.15-1.2); Total Protein 6.2 g/dL (6.6-8.7); Uric Acid 3.9 mg/dL (2.4-5.7)
[2021-03-29 22:55] LABS: Urine Appearance SL Hazy (CLEAR); Urine Color Yellow (Yellow)
[2021-03-29 22:56] LABS: Add Urine Microscopic? YES; Bacteria Urine 1+ /hpf; Bilirubin Urine Neg (Negative); Blood Urine Neg (Negative); Glucose Urine UA Norm (Normal); Ketones Urine Negative (Negative); Leukocyte Esterase Urine Negative (Negative); Nitrate Urine Negative (Negative); Protein Urine Neg (Negative); RBC Urine 0-4 /hpf (0-2); Specific Gravity, Urine 1.015 (1.005-1.030); Urobilinogen Urine Norm (Negative); WBC Urine 0-4 /hpf (0-5); pH Urine 7 (5-7)
[2021-03-29 22:57] LABS: Add Urine Culture? No; Amorphous Sediment Urine 2+ /hpf
[2021-03-29 23:06] LABS: UPRO/UCREAT Ratio 0.22 mg/mg CR; Urine Creatinine 115 mg/dL (28-217); Urine Protein Random 25 mg/dL
[2021-03-30] VITALS (92 sets, daily range): BP systolic 102–187; BP diastolic 54–100; PULSE 67–134; RESP 20; TEMP 36–37.3; O2SAT 97–100
[2021-03-30] MEDS: dextrose 5%-lactated ringers 1,000 ML 125 ML IV (06:19)
--- NOTE | 2021-03-30 07:23 | PM.OPHPUD ---
Labor & Delivery H&P Update Date of Procedure: March 30, 2021 Date H&P Performed: 03/24/21 H&P update information: I have reviewed H&P completed within last 30 days, I have examined patient prior to procedure and Changes to prior documentation as noted here (See below.) Changes to previous documentation: Patient arrived at approximately 4 cm dilated and roseann. She has now undergone artificial rupture membranes with small amount of slight meconium stained fluid obtained. She is still 4 cm dilated and 60% effaced. Admission Diagnosis: Preop diagnosis: Postdates . Planned procedure: Spontaneous vaginal delivery after induction. Pitocin used for augmentation.
[2021-03-30] MEDS: lactated ringers 1,000 ML 999 ML IV ×2 (07:25→12:00)
--- NOTE | 2021-03-30 09:37 | ANES.PREANE2 ---
Pre-Anesthetic Assessment Pre-Anesthetic Assessment: Height/Weight: Height 1.68 m Weight 109.316 kg Temp Pulse Resp BP Pulse Ox 97.4 F L 95 20 H 144/75 100 03/30/21 09:20 03/30/21 09:16 03/30/21 09:20 03/30/21 09:16 03/30/21 09:12 Preop Diagnosis: Postdates . Was Beta Dayday taken within 24 hours: Yes Was Clonidine taken within 24 hours: N/A Social: Social History: No alcohol and No tobacco Exam: Pre-Anes Outpt Exam: alert, oriented x 3, clear to auscultation bilaterally and regular rate & rhythm Airway: Submandibular: WNL Cervical ROM: WNL Dentition: Full Metabolic: Metabolic: Morbid obesity Anesthetic Plan: ASA status: 2 Anesthesia: Regional (specify below) (Labor epidural) Risk of > 500 ml blood loss (7ml/kg in children): No Meds/Allergies Current Medications: Current Medications Generic Name Dose Route Start Last Admin Trade Name Freq PRN Reason Stop Dose Admin Ropivacaine 200 mg in 100 mls @ 13 mls/hr 03/29/21 20:30 03/30/21 09:05 Naropin Premix EPIDURAL 13 mls/hr .Q7H42M VA Administration Lactated Ringer's 1,000 mls @ 999 m ls/hr 03/29/21 20:19 03/30/21 08:40 Lactated Ringers IV Infused .Q1H1M PRN Infusion See label comment s Dextrose/Lactated Ringer's 1,000 mls @ 125 m ls/hr 03/29/21 20:19 03/30/21 09:05 Dextrose 5%-Lact ated Ringers IV 125 mls/hr .Q8H PRN Infusion LABOR INDUCTION Oxytocin 30 unit in 500 ml s @ 1 mls/hr 03/29/21 21:45 03/30/21 07:02 Pitocin IV 16 milliunit/min .Q24H PRN 16 mls/hr LABOR INDUCTION Titration Protocol 1 MILLIUNIT/MIN PFSH Anesthesia Female Reproductive History: Date of last menstrual period: 06/17/20 : 4 Data Anesthesia CBC & Chem 7: 03/29/21 21:10 03/29/21 21:30 Other Labs: Laboratory Results - last 48 hr 03/29/21 03/29/21 03/29/21 21:10 21:30 21:30 WBC 10.1 RBC 3.81 L Hgb 9.4 L Hct 30.9 L MCV 81.1 MCH 24.7 L MCHC 30.4 RDW 17.1 H Plt Count 286 MPV 12.1 H Neut % (Auto) 70.8 Lymph % (Auto) 19.9 [place] % (Auto) 8.1 Eos % (Auto) 0.5 Baso % (Auto) 0.2 Neut # (Auto) 7.13 Lymph # (Auto) 2.0 [place] # (Auto) 0.8 Eos # (Auto) 0.1 Baso # (Auto) 0.0 Nucleated RBC % (auto) 0 Nucleated RBCs # 0.0 Sodium Potassium Chloride Carbon Dioxide Anion Gap BUN Creatinine GFR Calculation Glucose Calculated Osmolality Uric Acid Calcium Total Bilirubin AST ALT Alkaline Phosphatase Total Protein Albumin Globulin Urine Color Yellow Urine Appearance Sl hazy Urine pH 7 Ur Specific [place] 1.015 Urine Protein Neg Urine Glucose (UA) Norm Urine Ketones Negative Urine Blood Neg Urine Nitrate Negative Urine Bilirubin Neg Urine Urobilinogen Norm Ur Leukocyte Esterase Negative Urine RBC 0-4 H Urine WBC 0-4 H Ur Squamous Epith Cells 10-15 H Amorphous Sediment 2+ Urine Bacteria 1+ H U Random Total Protein Urine Creatinine Protein/Creatinin Ratio Urine Opiates Screen Negative Ur Barbiturates Screen Negative Ur Phencyclidine Scrn Negative Ur Amphetamines Screen Negative U Benzodiazepines Scrn Negative Urine Cocaine Screen Negative U Marijuana (THC) Screen Negative 03/29/21 03/29/21 21:30 21:30 WBC RBC Hgb Hct MCV MCH MCHC RDW Plt Count MPV Neut % (Auto) Lymph % (Auto) [place] % (Auto) Eos % (Auto) Baso % (Auto) Neut # (Auto) Lymph # (Auto) [place] # (Auto) Eos # (Auto) Baso # (Auto) Nucleated RBC % (auto) Nucleated RBCs # Sodium 137 Potassium 3.8 Chloride 103 Carbon Dioxide 23 Anion Gap 14.8 BUN 7 Creatinine 0.6 GFR Calculation 127.5 Glucose 80 Calculated Osmolality 281 L Uric Acid 3.9 Calcium 9.3 Total Bilirubin 0.2 AST 21 ALT 15 Alkaline Phosphatase 161 H Total Protein 6.2 L Albumin 3.2 L Globulin 3.0 Urine Color Urine Appearance Urine pH Ur Specific [place] Urine Protein Urine Glucose (UA) Urine Ketones Urine Blood Urine Nitrate Urine Bilirubin Urine Urobilinogen Ur Leukocyte Esterase Urine RBC Urine WBC Ur Squamous Epith Cells Amorphous Sediment Urine Bacteria U Random Total Protein 25 Urine Creatinine 115 Protein/Creatinin Ratio 0.22 Urine Opiates Screen Ur Barbiturates Screen Ur Phencyclidine Scrn Ur Amphetamines Screen U Benzodiazepines Scrn Urine Cocaine Screen U Marijuana (THC) Screen Cardiac Studies: No Data to Display
--- NOTE | 2021-03-30 09:37 | ANES.PROC ---
Anesthesia Procedures Procedure/Date: 03/30/21 Epidural: Time Out Performed: Yes Consents Signed: Procedure Consent Consent: requested by attending/covering physician, from patient, risks and benefits reviewed and patient agrees to proceed Lumbar Level: L3-L4 Epidural position: sitting Epidural procedure: sterile prep of area, 1% lidocaine to numb the area, 18 g needle, neg for paresthesia, test dose given, placed PCEA, no systemic response, sterile dressing applied and 0.2% Ropiavacaine @ mls/hr (13) Additional Comments: Several attempts at described level, DEMIAN at 7cm, cath at 12cm, bolused 5mls 2% lido.
[2021-03-30] MEDS: miSOPROStol 200 mcg Tablet 800 MCG PR (11:40)
[2021-03-30] MEDS: oxytocin 30 UNIT/500 ML BAG 999 UNIT IV (12:00)
--- NOTE | 2021-03-30 12:02 | PM.DELIVERY ---
Delivery Note: Date of delivery: March 30, 2021 Pre-Delivery Course: This patient was followed by this physician's her blood type was O+ with antibody screen negative. She is not immune and group B strep was negative. She was also noted to have a positive Covid test which was mildly symptomatic initially but now asymptomatic was diagnosed approximately 12 days prior to the day of admission. Patient did have induced hypertension which was controlled with labetalol 100 mg twice daily. Delivery: This patient was given Pitocin augmentation of her labor overnight until this morning and she had artificial rupture membranes secondary to no vaginal change. Upon artificial rupture membranes was moderate amount of slight meconium stained fluid obtained and she did go into more active labor at that time. She received epidural anesthesia and dilated throughout the morning to complete cervical dilatation. With pushing, she was able to deliver by spontaneous vaginal livery healthy, viable female at 11:29 AM. There is no episiotomy and no lacerations noted. The placenta delivered spontaneously at 1138. This was followed by significant bleeding which was slow to improve with fundal massage. She was given misoprostel 800 mcg rectally as well as Pitocin intravenously and trans-Diana acid. Intravenously. The bleeding has now slowed. Upon delivery of the infant's head, the mouth and nose were suctioned at the perineum with a bulb syringe. Then suctioned again following delivery of the infant. The was then laid on mother's abdomen where after approximately 1 minute the umbilical cord was clamped and then cut by the 's father. The umbilical cord had 3 blood vessels and there was no nuchal cord. The infant cried well at and had Apgars of 9 and 9 at 1 and 5 minutes respectively. The weighed 7 pounds 13 ounces. At the time of this dictation the estimated blood loss was approximately 834 milliliters but probably more as she bled more. There were no other complications. Post-Delivery Status: Patient had some bleeding and will be monitored for further bleeding. She will be restarted on her labetalol 100 mg twice daily and also be given iron 325 mg twice daily. We will also adjust orders as necessary. A&P Assessment and plan (1) Normal spontaneous vaginal delivery: Patient will be followed for routine postdelivery care. We will monitor for further bleeding and adjust orders as necessary. Status: Acute (2) hemorrhage: Patient appears to be improved at this time and will be followed closely for monitoring for further bleeding. Status: Acute (3) induced hypertension: We will continue her labetalol 100 mg twice daily. Status: Acute Coding Level of Care Code Acute Senior Portfolio Manager for Chg Fwd Diagnoses Normal spontaneous vaginal delivery O80 hemorrhage O72.1 induced hypertension O13.9
[2021-03-30] MEDS: ibuprofen 800 mg tablet PO ×2 (14:51→20:09)
[2021-03-30] MEDS: lanolin oint 7 gm 1 APPLIC TOPICAL (14:51)
--- NOTE | 2021-03-30 17:13 | ANE.PACU2 ---
Inpatient post-anesthesia follow up: Airway intact: Yes Vital signs: Temperature 98.4 F Pulse Rate 95 Respiratory Rate 20 Blood Pressure 143/79 Pulse Oximetry 99 Oxygen Delivery Me thod Room Air Oxygen Flow Rate Fraction of Inspir ed Oxygen Hydration adequate: Yes Nausea and vomiting: No Pain level: 2 Mental status: Baseline
[2021-03-30] MEDS: docusate sodium 100 mg Capsule PO (17:53)
[2021-03-30] MEDS: labetalol 200 mg Tablet 100 MG PO (17:53)
[2021-03-30] MEDS: HYDROcodone-acetaminophen 5-325 mg Tablet PO (18:52)
[2021-03-31 01:56] LABS: Hemoglobin 6.9 g/dL (11.5-15.3); Mean Corpuscular Hemoglobin 24.7 pg (28.0-34.0); Mean Corpuscular Volume 82.4 fl (81-99); Platelet Count 236 10^3/cmm (130-400); Red Blood Count 2.79 10^6/uL (4.1-5.3); Red Cell Distribution Width 17.3 % (12.1-15.1); White Blood Count 13.7 10^3/uL (4.5-13.0)
[2021-03-31 02:04] VITALS: TEMP 36.6
[2021-03-31 02:05] VITALS: BP 142/76; PULSE 78
--- NOTE | 2021-03-31 07:25 | P.DS_ITS ---
Discharge Providers DIRECTOR OF RESIDENTIAL SERVICES Date of Admission: 03/29/21 20:23 Date of Discharge: 03/31/21 Attending Provider at Admission: Cristhian Kelly MD Attending Provider at Discharge: Cristhian Kelly MD Primary Care Provider: Jamie Sarabia MD Diagnoses at Discharge Discharge Diagnosis (1) Normal spontaneous vaginal delivery: Status: Acute (2) hemorrhage: Status: Acute (3) induced hypertension: Status: Acute Reason for Visit Reason for Visit: Induction Hospital Course Hospital Course On the above date for probably induction. She was found to be in labor and Pitocin was added for augmentation. After artificial rupture of membranes she dilated to complete and delivered by spontaneous vaginal livery healthy, viable female . After delivery, she had some significant uterine atony with bleeding. She received misoprostel 800 mcg rectally, Pitocin intravenously and tranexamic acid. Since that time, she has slowed to just a normal mild lochia with occasional very small clots. She denies any cramping or other problems. She is ambulating well without symptoms of anemia. Her hemoglobin this morning was 6.9 and began at 9.4. She is otherwise doing well and the infant is breast-feeding well. There were no complications otherwise and the patient is felt to be stable for discharge this afternoon. Information Peripartum Data: Infant Delivery Method: Vaginal Physical Exam Const: COMMON NORMALS: no acute distress and healthy appearing HENMT: COMMON NORMALS: moist oral mucous membranes Resp: COMMON NORMALS: normal respiratory effort, No retractions, No use of accessory muscles and clear to auscultation bilaterally AUSCULTATION: clear to auscultation bilaterally Cardio: COMMON NORMALS: regular rate, regular rhythm and No murmurs present (Cardio) RATE: regular rate RHYTHM: regular rhythm GI: COMMON NORMALS: Normal to inspection, nondistended, normoactive bowel sounds present, Soft to palpation (Fundus is firm and well below the umbilicus.), non-tender and no masses PALPATION: Yes Soft to palpation (Fundus is firm and well below the umbilicus.) Extremity: COMMON NORMALS: normal to inspection, full ROM, no calf tenderness and no pedal edema Neuro: COMMON NORMALS: moves all extremities, no focal motor deficits and no sensory deficits noted Psych: COMMON NORMALS: mental status grossly normal, cooperative and normal affect Skin: COMMON NORMALS: no rashes or lesions noted GENERAL SKIN EXAM: no rashes or lesions noted Urinary Catheter Management^: Nava: Cath Placed During This Visit: yes Urinary Catheter Date of Insertion: 03/30/21 Urinary Catheter Time of Insertion: 09:15 Discharge Data Data Completed and Pending: Labs from last 24 hours 03/31/21 00:08 WBC 13.7 H RBC 2.79 L Hgb 6.9 L Hct 23.0 L MCV 82.4 MCH 24.7 L MCHC 30.0 RDW 17.3 H Plt Count 236 MPV 12.0 H Vitals: Last Vital Signs Temp 97.9 F 03/31/21 02:04 Pulse 78 03/31/21 02:05 Resp 20 H 03/30/21 10:13 BP 142/76 03/31/21 02:05 Pulse Ox 99 03/30/21 13:52 Discharge Plan Discharge Patient Disposition: Home Condition: Stable Prescriptions: New docusate sodium 100 mg Capsule 100 mg PO BID Qty: 60 RF: 1 ibuprofen 800 mg Tablet 800 mg PO TID Qty: 90 RF: 1 ferrous sulfate 325 mg (65 mg iron) Tablet,Delayed Release (Dr/Ec) 325 mg PO BIDWMEAL Qty: 60 RF: 2 Continued 1 tab PO DAILY RF: 0 labetalol 100 mg Tablet 100 mg PO BID RF: 0 Discharge Orders: Discharge Order (Routine); Ordered 03/31/21 Ordered By: Cristhian Kelly Referrals: Cristhian Kelly MD [Physician] - 6 Weeks Discharge Diet: Usual diet Discharge Activity: Resume usual activity Patient Instructions: Depression (DC), Bleeding (DC), Preeclampsia and Eclampsia After Delivery (GEN), Vaginal Delivery (DC), Hemorrhage (DC), OB Discharge Report, Opioid Safety Discharge Attestations DIRECTOR OF RESIDENTIAL SERVICES Time Spent in Discharge Care*: less than 30 min Specific Discharge Activities: Specific discharge activities: educating patient, documenting/other paperwork and evaluating patient/reviewing data Coding Level of Care Code Acute Seismic Observer for Chg Fwd Diagnoses Normal spontaneous vaginal delivery O80 hemorrhage O72.1 induced hypertension O13.9
--- NOTE | 2021-03-31 07:26 | PC.NURSE ---
note: This mom reports is going well. Stated that baby cluster fed through the night but has had longer feedings as well. She breastfed her first baby for 5 months without difficulty and has no concerns about this baby feeding. She did not have questions or need me to assess the feeding. She did accept contact information.
[2021-03-31] MEDS: docusate sodium 100 mg Capsule PO (09:20)
[2021-03-31] MEDS: prenatal vitamin Capsule 1 CAP PO (09:20)
[2021-03-31] MEDS: ibuprofen 800 mg tablet PO (09:20)
[2021-03-31] MEDS: ferrous sulfate EC 325 mg Tablet PO (09:21)
[2021-03-31] MEDS: labetalol 200 mg Tablet 100 MG PO (09:21)
[2021-03-31 09:23] VITALS: BP 139/80; PULSE 101; TEMP 36.2
[2021-03-31 13:19] VITALS: BP 137/75; PULSE 103; TEMP 36.4
--- NOTE | 2021-03-31 13:41 | PC.NURSE ---
Patient refused MMR vaccine at time of discharge
== END 2021-03-31 13:40 | disposition home or self-care (01) | DRG 806 ==
LOC: OPOB 20:28 → OBGYN 20:28
PROVIDERS: Admitting Provider Family Medicine; PCP Family Medicine; Visit Provider Family Medicine
DX: O48.0 Post-term pregnancy (principal); O72.1 Other immediate postpartum hemorrhage; Z37.0 Single live birth; O77.0 Labor and delivery complicated by meconium in amniotic fluid; O13.4 Gestational [pregnancy-induced] hypertension without significant proteinuria, complicating childbirth; Z86.16 Personal history of COVID-19; Z3A.40 40 weeks gestation of pregnancy
CPT/HCPCS: 36415; 51702; 59025; 59409; 80053; 80306; 81001; 82570; 84156; 84550; 85025; 85027; 99211; J2795

== ENCOUNTER 2022-06-09 07:40 | Outpatient (CLI) | payer MEDICAID, SELFPAY ==
[2022-06-09 08:00] VITALS: BP 122/80; PULSE 95; RESP 16; TEMP 36
[2022-06-09 08:15] VITALS: RESP 18; BMI 33.2
[2022-06-09 08:16] VITALS: BP 118/78; PULSE 92
[2022-06-09 08:36] VITALS: BP 114/74; PULSE 91
== END 2022-06-09 08:44 | disposition home or self-care (01) ==
LOC: OPOB 07:46 → OBGYN 07:58
PROVIDERS: Absent Provider Family Medicine; PCP Family Medicine; Visit Provider Family Medicine
DX: O26.899 Other specified pregnancy related conditions, unspecified trimester (principal); Z3A.00 Weeks of gestation of pregnancy not specified; N89.8 Other specified noninflammatory disorders of vagina
CPT/HCPCS: 59025; 99211

== ENCOUNTER 2022-06-11 00:53 | Observation (INO) | payer MEDICAID, SELFPAY ==
[2022-06-11 00:54] VITALS: BMI 33.2
[2022-06-11 01:02] VITALS: TEMP 35.7
[2022-06-11 01:03] VITALS: BP 134/83; PULSE 93
[2022-06-11 01:17] VITALS: BP 139/90; PULSE 104
--- NOTE | 2022-06-11 01:22 | PC.NURSE ---
PT LEFT UNIT WITHOUT SIGNING AMA PAPERWORK, DISCHARGE ORDER OR INSTRUCTIONS. Leopoldo CONNOR RN AND SUB PLANT MANAGER, Leopoldo WYATT RN ALL NOTIFIED.
--- NOTE | 2022-06-11 04:55 | PC.NURSE ---
PT LEFT UNIT WITHOUT SIGNING AMA PAPERWORK, DISCHARGE ORDER OR INSTRUCTIONS. Leopoldo CONNOR RN AND MASTER [employer], Leopoldo WYATT RN ALL NOTIFIED.
== END 2022-06-11 01:22 | disposition left against medical advice (07) ==
PROVIDERS: Admitting Provider Family Medicine; PCP Family Medicine; Visit Provider Family Medicine
DX: O26.899 Other specified pregnancy related conditions, unspecified trimester (principal); Z3A.00 Weeks of gestation of pregnancy not specified; N89.8 Other specified noninflammatory disorders of vagina; Z53.21 Procedure and treatment not carried out due to patient leaving prior to being seen by health care provider
CPT/HCPCS: 59025; 83986; 99211; G0378; G0379

== ENCOUNTER → 2022-11-08 14:15 | Outpatient (BNVA) | payer MEDICAID, SELFPAY | PROVIDERS: PCP Family Medicine; Visit Provider Obstetrics & Gynecology | DX: N81.10 Cystocele, unspecified (principal) | CPT/HCPCS: 87086 ==

== ENCOUNTER 2023-08-03 22:43 | Emergency (ER) | payer MEDICAID, SELFPAY ==
--- NOTE | 2023-08-03 22:46 | USR_ITS ---
PROCEDURE INFORMATION: Exam: US Duplex Left Lower Extremity Veins, Limited Exam date and time: 08/03/2023 10:50 PM Age: 22 years old Clinical indication: Edema, localized; Lower extremity, left; Patient HX: 34 weeks , complaining of pain and swelling lle. ; Additional info: Pain/swelling R/O dvt TECHNIQUE: Imaging protocol: Real-time duplex ultrasound of the left extremity with 2-D curry scale, color Doppler flow and spectral waveform analysis including responses to compression and other maneuvers (when performed) with image documentation. Limited exam focused on the left lower extremity veins. COMPARISON: US OB >= 14 weeks fetus [id number] 05/03/2023 4:42 PM FINDINGS: Left deep veins: Unremarkable. The common femoral, femoral, proximal profunda femoral and popliteal veins are patent without thrombus. Normal Doppler waveforms. Normal compressibility and/or augmentation response. Superficial veins: Greater saphenous vein at the saphenofemoral junction is patent without thrombus. Soft tissues: Unremarkable. US/CV venous duplex [facility] [id number] IMPRESSION: No evidence of deep vein thrombosis.
[2023-08-03 22:47] VITALS: BP 125/78; PULSE 100; RESP 16; TEMP 36.3; O2SAT 99; BMI 32.3
[2023-08-03 23:31] LABS: Basophils % 0.3 %; Eosinophils # 0.1 10^3/uL (0.0-0.8); Eosinophils % 0.8 %; Hematocrit 32.7 % (36-47); Lymphocytes # 1.9 10^3/uL (0.8-4.8); Lymphocytes % 19.3 %; Mean Corpuscular HGB Conc 31.8 g/dL (30-55); Mean Corpuscular Hemoglobin 28.5 pg (27-33); Mean Corpuscular Volume 89.6 fl (85-98); Mean Platelet Volume 10.7 fL (7.4-10.4); Monocytes % 9.6 %; Neutrophils # 6.91 10^3/uL (1.8-7.7); Neutrophils % 69.6 %; Nucleated Red Blood Cells % 0 %; Platelet Count 233 10^3/cmm (157-399); Red Blood Count 3.65 10^6/uL (3.85-5.65); Red Cell Distribution Width 13.3 % (12.1-15.1); White Blood Count 9.93 10^3/uL (3.29-11.43)
--- NOTE | 2023-08-03 23:47 | W.ED.EXTPRO ---
HPI - Extremity Problem General: Chief complaint: Extremity Problem,Nontraumatic Stated complaint: possible blood clot left leg Time Seen by Provider: 08/03/23 23:09 History of Present Illness: 22-year-old female comes in today for complaints of left posterior knee pain. On exam patient appears nontoxic. Skin is warm and dry. Vital signs are normal. Review of Systems General: Reports: 10 or more systems reviewed and unremarkable except in HPI and below Musc: Reports: extremity pain PFSH ED PFSH: Family History (Updated 11/08/22 @ 13:53 by Lynn Cardenas LPN) Grandfather Heart disease Denies family history of Colon cancer Ovarian cancer Diabetes Hyperlipidemia Breast cancer Hypertension Uterine cancer Thyroid disease Stroke Physical Exam Const: COMMON NORMALS: alert HENMT: COMMON NORMALS: normocephalic HEAD & SCALP: normocephalic Neck/C-Spine: COMMON NORMALS: full ROM Resp: COMMON NORMALS: normal respiratory effort and clear to auscultation bilaterally AUSCULTATION: clear to auscultation bilaterally Cardio: COMMON NORMALS: regular rate RATE: regular rate Back/Pelvis: COMMON NORMALS: thoracic and lumbar spine normal to inspection Extremity: LEFT LOWER EXTREMITY: Yes knee joint (Posterior knee tenderness without any obvious swelling or redness) Left knee: Yes inspection, Yes palpation and Yes ROM Neuro: SENSORIUM/ORIENTATION: Yes alert Skin: COMMON NORMALS: turgor normal GENERAL SKIN EXAM: turgor normal Course Vital Signs: Vital signs: Vital Signs Temperature 97.3 F L 08/03/23 22:47 Pulse Rate 100 08/03/23 22:47 Respiratory Rate 16 08/03/23 22:47 Blood Pressure 125/78 08/03/23 22:47 Pulse Oximetry 99 08/03/23 22:47 MDM - Extremity (Nontraumatic) Medical Decision Making Patient comes in today with left knee pain. On exam patient has some tenderness to the posterior left knee without any redness or swelling. Normal range of motion. Distal pulses are intact. Patient skin is warm and dry. Vital signs are normal. Differential diagnosis includes DVT, knee strain, Foster's cyst, varicose veins. Patient does have some obvious varicose veins. Ultrasound extremity noted no DVT. CBC noted anemia. Reviewed exam with patient with recommendations for treatment for pain. Patient reported understanding of care plan and need for follow-up or return to the ER. Lab Data 08/03/23 23:23 08/03/23 23:23 Radiology Impressions Venous Duplex 08/03/23 22:46 IMPRESSION: No evidence of deep vein thrombosis. Laboratory Results WBC 9.93 10^3/uL (3.29-11.43) 08/03/23 23:23 RBC 3.65 10^6/uL (3.85-5.65) L 08/03/23 23:23 Hgb 10.40 g/dL (11.27-16.99) L 08/03/23 23:23 Hct 32.7 % (36-47) L 08/03/23 23:23 MCV 89.6 fl (85-98) 08/03/23 23:23 MCH 28.5 pg (27-33) 08/03/23 23:23 MCHC 31.8 g/dL (30-55) 08/03/23 23:23 RDW 13.3 % (12.1-15.1) 08/03/23 23:23 Plt Count 233 10^3/cmm (157-399) 08/03/23 23:23 MPV 10.7 fL (7.4-10.4) H 08/03/23 23:23 Neut % (Auto) 69.6 % 08/03/23 23:23 Lymph % (Auto) 19.3 % 08/03/23 23:23 [place] % (Auto) 9.6 % 08/03/23 23:23 Eos % (Auto) 0.8 % 08/03/23 23:23 Baso % (Auto) 0.3 % 08/03/23 23:23 Neut # (Auto) 6.91 10^3/uL (1.8-7.7) 08/03/23 23:23 Lymph # (Auto) 1.9 10^3/uL (0.8-4.8) 08/03/23 23:23 [place]vert # (Auto) 1.0 10^3/uL (0.2-0.9) H 08/03/23 23:23 Eos # (Auto) 0.1 10^3/uL (0.0-0.8) 08/03/23 23:23 Baso # (Auto) 0.0 10^3/uL (0.0-0.1) 08/03/23 23:23 Nucleated RBC % (auto) 0 % 08/03/23 23:23 Nucleated RBCs # 0.0 /100WBC 08/03/23 23:23 All radiology interpretation(s) finalized by discharge Discharge Plan Discharge Patient Disposition: Home Clinical Impression: Posterior left knee pain Condition: Stable Prescriptions: No Action 1 tab PO DAILY labetalol 100 mg Tablet 100 mg PO BID ibuprofen 800 mg Tablet 800 mg PO TID Qty: 90 1RF docusate sodium 100 mg Capsule 100 mg PO BID Qty: 60 1RF ferrous sulfate 325 mg (65 mg iron) Tablet,Delayed Release (Dr/Ec) 325 mg PO BIDWMEAL Qty: 60 2RF Discharge Orders: Discharge ED (Routine); Ordered 08/03/23 Ordered By: El Corcoran Referrals: Yayo Littlejohn MD [Primary Care Provider] - Discharge Diet: Usual diet Discharge Activity: Increase activity as tolerated Patient Instructions: Knee Pain (ED) Activity Restrictions/Additional Instructions: Activity as tolerated. Use acetaminophen or ice to help with pain. Follow-up with primary care for further recommendations. Return to ED for worsening symptoms such as increasing redness and swelling to the leg, fever greater than 100.4, or new concerns. Coding Level of Care Code ED Video Game Repair Technician for Ace Richey
[2023-08-04 00:02] VITALS: PULSE 93; RESP 18; O2SAT 99
[2023-08-04 00:03] LABS: Alanine Aminotransferase 8 U/L (0-33); Anion Gap 11.8 (5-19); Aspartate Amino Transferase 13 U/L (0-32); Calcium 8.5 mg/dL (8.5-10.5); Carbon Dioxide 24 mmol/L (22-29); Chloride 106 mmol/L (98-107); Globulin 2.9 g/dL (1.3-4.6); Glucose 71 mg/dL (65-115); Potassium 3.8 mmol/L (3.5-5.1); Sodium 138 mmol/L (136-145); Total Bilirubin 0.2 mg/dL (0.15-1.2)
[2023-08-04 00:11] LABS: Albumin Level 3.3 g/dL (3.5-5.2); Alkaline Phosphatase 121 U/L (35-105); Total Protein 6.2 g/dL (6.6-8.7)
[2023-08-04 00:12] LABS: Glomerular Filtration Rate 154.3 mL/min (90-130)
[2023-08-04 00:13] LABS: Blood Urea Nitrogen 10 mg/dL (6-20); Osmolality Calculated 284 mOsm/kg (285-295)
== END 2023-08-04 00:04 | disposition home or self-care (01) ==
PROVIDERS: Internal Medicine; Emergency Provider Nurse Practitioner Family; PCP Family Medicine
DX: M25.562 Pain in left knee (principal)
CPT/HCPCS: 36415; 80053; 84702; 85025; 93971; 99284

== ENCOUNTER 2023-09-18 18:25 | Observation (INO) | payer MEDICAID, SELFPAY ==
[2023-09-18 18:46] VITALS: BMI 34.7
[2023-09-18 19:28] LABS: Nitrazine Paper, PH Positive
[2023-09-18 19:34] LABS: Amphetamines Screen Urine Negative (Negative); Barbiturates Screen Urine Negative (Negative); Benzodiazepines Screen Urine Negative (Negative); Cocaine Screen Urine Negative (Negative); Opiate Screen Urine Negative (Negative); PCP Screen Urine Negative (Negative); THC Screen Urine Negative (Negative)
== END 2023-09-18 18:51 | disposition left against medical advice (07) ==
LOC: OPOB 18:26 → OBGYN 19:29
PROVIDERS: Admitting Provider Family Medicine; PCP Family Medicine; Visit Provider Family Medicine
DX: O48.0 Post-term pregnancy (principal); Z3A.41 41 weeks gestation of pregnancy
CPT/HCPCS: 80306; 83986; 99211; G0378

== ENCOUNTER 2024-09-17 20:03 | Emergency (ER) | payer MEDICAID, SELFPAY ==
[2024-09-17 20:05] VITALS: BP 124/69; PULSE 112; TEMP 36.7; O2SAT 99; BMI 27.8
--- NOTE | 2024-09-17 20:28 | USR_ITS ---
PROCEDURE INFORMATION: Exam: US First Trimester, Transabdominal and US , Transvaginal Exam date and time: 09/17/2024 8:48 PM Age: 24 years old Clinical indication: Lmp or gestational age (in weeks): 12 w 0d by US; Antepartum complications; ; G7-p4-a2-l4 presenting with vaginal bleeding LABS AND CLINICAL REPORTS: Last menstrual period start date: 07/23/2024 Gestational age (Established): 8 w 0 d TECHNIQUE: Imaging protocol: Real-time transabdominal obstetrical ultrasound of the maternal pelvis and a first trimester , less than 14 weeks 0 days, with image documentation. Transvaginal imaging was used for better evaluation of the fetus, adnexa, and/or cervix. COMPARISON: US OB >= 14 weeks fetus [id number] 05/03/2023 4:42 PM FINDINGS: GESTATION: Gestation: Intrauterine gestation is visualized. pole is visualized. No yolk sac is visualized. Embryo/ cardiac activity (BPM): 169 bpm Extra-embryonic membranes/Placenta: Subchorionic hematoma measures 5.1 cm x 4.4 cm x 2.6 cm. Amniotic/Chorionic fluid: Amniotic and extra-amniotic fluid are normal for gestational age. BIOMETRY: Gestational age (AUA): 12 w 0 d Estimated due date (AUA): 04/01/2025 [place] rump length (CRL): 52.3 mm. EGA (CRL) is 12 w 0 d MATERNAL: Uterus: Uterus measures 11.1 cm x 10.28 cm x 7.13 cm. Cervix: Unremarkable. Endocervical canal is closed. Right ovary/adnexa: Right ovary measures 4 cm x 3.1 cm x 1.9 cm. Right ovarian volume is 12.3 mL. Right ovary 10 mm cyst may be corpus luteal in nature. Left ovary/adnexa: Left ovary measures 4.2 cm x 3.2 cm x 1.4 cm. Left ovarian volume is 10 mL. Intraperitoneal space: No intraperitoneal free fluid. US/US OB <= 14 weeks fetus [id number] IMPRESSION: 1. Single live intrauterine . 2. Subchorionic hematoma measures 5.1 cm x 4.4 cm x 2.6 cm. 3. Right ovary 10 mm cyst may be corpus luteal in nature.
[2024-09-17 20:31] VITALS: BP 118/74; PULSE 78; RESP 16; O2SAT 99
--- NOTE | 2024-09-17 21:17 | ED_ITS ---
HPI - 2 General: Chief complaint: Vaginal Bleeding Stated complaint: vaginal bleeding, cramping, thinks 6-8 weeks preg Time Seen by Provider: 09/17/24 20:27 History of Present Illness: 24-year-old female presents with some mi ld vaginal bleeding. Patient is approximately 6 to 8 weeks . She is concerned that she might be having a miscarriage. Bleeding started last night she Plast a clot today and she was concerned. Related Data : 7 Home Medications ?Medication ?Instructions ?Recorded ?Confirmed 1 tab PO DAILY 08/02/2010/15 labetalol 100 mg tablet 100 mg PO BID 03/30/2111/08 Previous Rx's ?Medication ?Instructions ?Recorded docusate sodium 100 mg capsule 100 mg PO BID #60 caps 03/31/21 ferrous sulfate 325 mg (65 mg 325 mg PO BIDWMEAL #60 t abs 03/31/21 iron) tablet,delayed release ibuprofen 800 mg tablet 800 mg PO TID #90 tabs 03/31 Allergies Allergy/AdvReac Type Severity Reaction Status Date / Time Sulfa (Sulfonamide Allergy ALGY-Hives Verified 09/17/24 20:10 Antibiotics) Review of Systems 2 : Reports: other (Please see HPI) PFSH ED 2 PFSH: Family History (Updated 11/08/22 @ 13:53 by Lynn Cardenas LPN) Grandfather Heart disease Denies family history of Colon cancer Ovarian cancer Diabetes Hyperlipidemia Breast cancer Hypertension Uterine cancer Thyroid disease Stroke Female Reproductive History: : 7 Physical Exam 2 Const: COMMON NORMALS: no acute distress, average body habitus and patient oriented x3 Resp: COMMON NORMALS: normal respiratory effort and clear to auscultation bilaterally AUSCULTATION: clear to auscultation bilaterally Cardio: COMMON NORMALS: regular rate and regular rhythm RATE: regular rate RHYTHM: regular rhythm : OTHER: Pelvic exam deferred Neuro: COMMON NORMALS: patient oriented x3 Psych: COMMON NORMALS: mental status grossly normal, Normal thought process present and cooperative THOUGHT PROCESS: Normal thought process present Skin: COMMON NORMALS: no rashes or lesions noted and turgor normal GENERAL SKIN EXAM: no rashes or lesions noted and turgor normal Course 2 Vital Signs: Vital signs: Vital Signs Temperature 98.0 F 09/17/24 20:05 Pulse Rate 78 09/17/24 20:31 Respiratory Rate 16 09/17/24 20:31 Blood Pressure 118/74 09/17/24 20:31 Pulse Oximetry 99 09/17/24 20:31 Oxygen Delivery Me thod Room Air 09/17/24 20:31 MDM - OB/Uterine Contractions Medical Decision Making Patient's ultrasound shows a intrauterine along with a subchorionic hematoma. Discussed findings with patient. She does have an appointment, with her OB. I discussed with her that at this time she does have a intrauterine and is difficult to discern what will happen with the hematoma. Patient will keep her appoint with her OB and is discharged home. Lab Data 09/17/24 21:10 09/17/24 21:10 Radiology Impressions Ultrasound 09/17/24 20:28 IMPRESSION: 1. Single live intrauterine . 2. Subchorionic hematoma measures 5.1 cm x 4.4 cm x 2.6 cm. 3. Right ovary 10 mm cyst may be corpus luteal in nature. ADDENDUM: [id number]/17/[id number] THIS REPORT CONTAINS FINDINGS THAT MAY BE CRITICAL TO PATIENT CARE. The findings were verbally communicated via telephone conference with NISHA LAWLER at 9:32 PM CDT on 09/17/2024. The findings were acknowledged and understood. Laboratory Results WBC 9.77 10^3/uL (3.29-11.43) 09/17/24 21:10 RBC 4.24 10^6/uL (3.85-5.65) 09/17/24 21:10 Hgb 12.70 g/dL (11.27-16.99) 09/17/24 21:10 Hct 38.5 % (36-47) 09/17/24 21:10 MCV 90.8 fl (85-98) 09/17/24 21:10 MCH 30.0 pg (27-33) 09/17/24 21:10 MCHC 33.0 g/dL (30-55) 09/17/24 21:10 RDW 12.8 % (12.1-15.1) 09/17/24 21:10 Plt Count 268 10^3/cmm (157-399) 09/17/24 21:10 MPV 10.3 fL (7.4-10.4) 09/17/24 21:10 Neut % (Auto) 71.7 % 09/17/24 21:10 Lymph % (Auto) 20.3 % 09/17/24 21:10 Trigg % (Auto) 6.1 % 09/17/24 21:10 Eos % (Auto) 1.5 % 09/17/24 21:10 Baso % (Auto) 0.1 % 09/17/24 21:10 Neut # (Auto) 7.00 10^3/uL (1.8-7.7) 09/17/24 21:10 Lymph # (Auto) 2.0 10^3/uL (0.8-4.8) 09/17/24 21:10 Trigg # (Auto) 0.6 10^3/uL (0.2-0.9) 09/17/24 21:10 Eos # (Auto) 0.2 10^3/uL (0.0-0.8) 09/17/24 21:10 Baso # (Auto) 0.0 10^3/uL (0.0-0.1) 09/17/24 21:10 Nucleated RBC % (auto) 0 % 09/17/24 21:10 Nucleated RBCs # 0.0 /100WBC 09/17/24 21:10 Ser , Semi-Qnt Cancelled 09/17/24 21:10 All radiology interpretation(s) finalized by discharge Discharge Plan Discharge Patient Disposition: Home Clinical Impression: Subchorionic hematoma in first trimester Condition: Stable Prescriptions: No Action 1 tab PO DAILY labetalol 100 mg Tablet 100 mg PO BID ibuprofen 800 mg Tablet 800 mg PO TID Qty: 90 1RF docusate sodium 100 mg Capsule 100 mg PO BID Qty: 60 1RF ferrous sulfate 325 mg (65 mg iron) Tablet,Delayed Release (Dr/Ec) 325 mg PO BIDWMEAL Qty: 60 2RF Discharge Orders: Discharge ED (Routine); Ordered 09/17/24 Ordered By: Nisha Lawler Referrals: Yayo Littlejohn MD [Primary Care Provider, [facility]] Discharge Diet: Usual diet Discharge Activity: Resume usual activity Patient Instructions: Subchorionic Hemorrhage (ED), Opioid Safety, Pain Management Activity Restrictions/Additional Instructions: Please keep your appointment with your quill machine tender. Print Language: Lithuanian Coding Level of Care Code ED Medical Customer Service Representative for Chg Fwjulio
[2024-09-17 21:18] LABS: Basophils % 0.1 %; Eosinophils # 0.2 10^3/uL (0.0-0.8); Eosinophils % 1.5 %; Hematocrit 38.5 % (36-47); Lymphocytes % 20.3 %; Mean Corpuscular Volume 90.8 fl (85-98); Mean Platelet Volume 10.3 fL (7.4-10.4); Monocytes # 0.6 10^3/uL (0.2-0.9); Monocytes % 6.1 %; Neutrophils % 71.7 %; Nucleated Red Blood Cells % 0 %; Platelet Count 268 10^3/cmm (157-399); Red Blood Count 4.24 10^6/uL (3.85-5.65); Red Cell Distribution Width 12.8 % (12.1-15.1); White Blood Count 9.77 10^3/uL (3.29-11.43)
[2024-09-17 21:53] LABS: Alanine Aminotransferase 9 U/L (0-33); Albumin Level 3.8 g/dL (3.5-5.2); Alkaline Phosphatase 58 U/L (35-105); Anion Gap 14.8 (5-19); Aspartate Amino Transferase 10 U/L (0-32); Blood Urea Nitrogen 7 mg/dL (6-20); Calcium 9.1 mg/dL (8.5-10.5); Carbon Dioxide 24 mmol/L (22-29); Chloride 103 mmol/L (98-107); Creatinine Clr Calc Pharmacy 176.6583; Globulin 3.1 g/dL (1.3-4.6); Glomerular Filtration Rate 151.6 mL/min (90-130); Glucose 88 mg/dL (65-115); Osmolality Calculated 283 mOsm/kg (285-295); Potassium 3.8 mmol/L (3.5-5.1); Sodium 138 mmol/L (136-145); Total Bilirubin 0.2 mg/dL (0.15-1.2); Total Protein 6.9 g/dL (6.6-8.7)
[2024-09-17 22:28] VITALS: BP 121/71; PULSE 81; RESP 16; O2SAT 99
== END 2024-09-17 22:29 | disposition home or self-care (01) ==
PROVIDERS: Family Medicine; Emergency Provider Student in an Organized Health Care Education/Training Program; PCP Family Medicine
DX: O46.91 Antepartum hemorrhage, unspecified, first trimester (principal); Z3A.01 Less than 8 weeks gestation of pregnancy
CPT/HCPCS: 36415; 76801; 80053; 84702; 85025; 99284